=== PATIENT | male | born 1955 ===

== ENCOUNTER 2022-03-20 11:30 | Inpatient (IN) | payer OTHER ==
[~2022-03-20] VITALS: Ht 175.3 cm; Wt 63.5 kg
[2022-03-20] MEDS ORDERED: SIMVASTATIN20 MG PO (14:58)
[2022-03-22] MEDS ORDERED: CENTRUM SILVER1 EAC1 (14:19)
[2022-03-22] MEDS ORDERED: COLLAGEN PLUS1 EACH (14:20)
== END 2022-03-28 10:27 | disposition home or self-care (01) | DRG 330 ==
LOC: SURH 03-22 08:50 → O/R 03-22 09:10 → SURH 03-22 11:30
PROVIDERS: ADMIT Colon & Rectal Surgery; ATTEND Colon & Rectal Surgery
PROC: 07BB4ZZ Excision of Mesenteric Lymphatic, Percutaneous Endoscopic Approach (ICD-10-PCS; 2022-03-22)
PROC: 0DTF4ZZ Resection of Right Large Intestine, Percutaneous Endoscopic Approach (ICD-10-PCS; principal; 2022-03-22 08:50)
DX: C18.3 Malignant neoplasm of hepatic flexure (principal); K92.1 Melena; K91.89 Other postprocedural complications and disorders of digestive system; K56.7 Ileus, unspecified; Z85.038 Personal history of other malignant neoplasm of large intestine; E78.49 Other hyperlipidemia